=== PATIENT | female | born 2000 ===

== ENCOUNTER 2023-01-18 07:04 | Emergency (ER) | payer BC ==
[2023-01-18] MEDS ORDERED: Acetaminophen 500 MG TAB ONE (07:14)
[2023-01-18 07:50] LABS: Bilirubin Negative (Negative); Blood, Urine Large (Negative); Glucose, Urine (Dipstick) Negative (Negative); Ketone, Urine > or equal to 80 mg/dL (Negative); Leukocyte Negative (Negative); Nitrite Negative (Negative); Protein, Urine (Dipstick) 30 mg/dL (Neg-Trace); Specific Gravity, Urine 1.015 (1.005-1.030); Urobilinogen 0.2 mg/dL (Less than 2); pH, Urine 8.5 (5.0-9.0)
[2023-01-18 07:59] LABS: Clarity Hazy (Clear)
[2023-01-18 08:09] LABS: CAUTI Indications for Culture Pelvic or flank pain; RBC/HPF 0-3 HPF (0-3); Squamous Epithelial Greater than 50 HPF (0-3); WBC/HPF 0-3 HPF (0-3)
[2023-01-18 08:13] LABS: #Monocytes 0.4 thou/uL (0.11-0.59); #Neutrophils 4.5 thou/uL (1.40-6.50); %Lymphocytes 13.5 % (28.0-48.0); %Monocytes 7.1 % (0.0-4.0); %Neutrophils 79.2 % (31.0-61.0); Hematocrit 37.7 % (36.0-47.0); Hemoglobin 12.6 g/dL (12.0-16.0); Mean Corpuscular HGB CONC 33.4 g/dL (32.0-36.0); Mean Corpuscular Hemoglobin 28.4 pg (25.0-35.0); Mean Corpuscular Volume 85.1 fl (78.0-98.0); Mean Platelet Volume 9.2 fL (7.4-10.4); Platelet Count 208 10x3/uL (130-400); RBC Distribution Width 12.8 % (11.5-14.5); Red Blood Cell (RBC) Count 4.43 mill/uL (4.00-5.20); White Blood Cell (WBC) Count 5.6 10x3/uL (4.8-10.8)
[2023-01-18 08:14] LABS: Bacteria/HPF Rare-Few HPF (None Seen); Transitional Epithelial 0-3 HPF (None Seen)
[2023-01-18 08:15] LABS: Urine Culture Reflex No No
[2023-01-18 08:29] LABS: BHCG - Serum Negative (NEGATIVE); Pregs Control Background? CLEAR/WHITE (CLR/WHITE); Pregs Control Bar Appear? YES (CONTROL BAR)
[2023-01-18 08:35] LABS: SARS-CoV-2 NAA Rapid Test Not Detected (NotDetected)
[2023-01-18 08:37] LABS: ALT (SGPT) 9 U/L (8-55); AST (SGOT) 15 U/L (5-34); Albumin 3.8 g/dL (3.5-5.0); Alkaline Phosphatase 43 U/L (40-100); Anion Gap 15 mmol/L (10-20); BUN (Urea Nitrogen) 4 mg/dL (7.0-18.7); Bilirubin, Total 0.2 mg/dL (0.2-1.2); Calc. Creatinine Clearance 0 mL/min (70-130); Calcium 8.6 mg/dL (7.8-10.44); Carbon Dioxide 20 mmol/L (22-29); Chloride 107 mmol/L (98-107); Estimated GFR 128; Globulin 2.8 g/dL (2.4-3.5); Glucose 95 mg/dL (70-105); Potassium 3.7 mmol/L (3.5-5.1); Protein, Total 6.6 g/dL (6.0-8.3); Sodium 138 mmol/L (136-145)
== END 2023-01-18 09:15 | disposition home or self-care (01) ==
LOC: ERS 07:04
DX: R31.9 Hematuria, unspecified (principal); R05.9 Cough, unspecified; R07.0 Pain in throat; R50.9 Fever, unspecified; R10.30 Lower abdominal pain, unspecified
CPT/HCPCS: 36415; 71045; 80053; 81001; 84703; 85025; 87081; 87430; 99283